=== PATIENT | male | born 1965 | race Caucasian/White ===

== ENCOUNTER 2016-12-03 13:43 | Inpatient (IN) | payer OTHER ==
[~2016-12-03] VITALS: Ht 172.7 cm; Wt 63.5 kg
[2016-12-03 15:04] LABS: HEMOGLOBIN 11.7 gm/dl (14.0-17.5); RED BLOOD COUNT 3.68 M/UL (4.20-5.50); WHITE BLOOD COUNT 8.9 K/UL (4.5-11.0)
[2016-12-03 15:24] LABS: BUN/CREATININE RATIO 14 (0-10)
--- NOTE | 2016-12-04 22:53 | NUR ---
AT 1900 DURING CHANGE OF SHIFT REPORT THE OFF GOING NURSE REPORTS PATIENT WENT OUTSIDE FOR A WALK AND FRESH AIR AND WILL RETURN LATER. PATIENT'S ROOM WAW CHECKED SEVERAL TIMES AND AT 1999 SECURITY WAS ASK TO LOOK ON THE FACILITY GROUNDS FOR THE PATIENT BECAUSE HE HAD NOT RETURNED TO HIS ROOM. AT 2200 PT WAS NOTED TO BE BACK IN HIS ROOM NO NOTED DISTRESS THIS DID CAUSE DELAY IN SHIFT ASSESSMENT, MEDS WERE GIVEN ON TIME.
[2016-12-05] MEDS ORDERED: BACTRIM DS TAB1 EACH PO (12:01)
== END 2016-12-05 11:30 | disposition home or self-care (01) | DRG 603 ==
LOC: ER1 13:43 → M/S 17:53 → ZEROF 17:53 → M/S 20:25
PROVIDERS: Emergency Medicine; ADMIT Internal Medicine
DX: L03.011 Cellulitis of right finger (principal); S61.214A Laceration without foreign body of right ring finger without damage to nail, initial encounter; D64.9 Anemia, unspecified; I25.10 Atherosclerotic heart disease of native coronary artery without angina pectoris; F17.210 Nicotine dependence, cigarettes, uncomplicated
CPT/HCPCS: 36415; 73130; 80053; 80202; 85025; 87040; 90714; 93005; 96365; 96367; 99284; J0696; J2270; J3370; J7050; J7070

== ENCOUNTER 2020-08-11 13:12 | Emergency (ER) | payer OTHER ==
[~2020-08-11 13:12] MED LIST: BACTRIM DS TAB1 EACH PO; BENADRYL 25MG C25 MG PO; CYCLOBENZAPRINE10 MG PO; CYCLOBENZAPRINE5 MG PO; GENTAMICIN 0.3% OD; IBUPROFEN600 MG PO; LOTRIMIN CREAM15 GM TP; NAPROSYN500 MG PO
[2020-08-11] MEDS ORDERED: PERCOCET 5-3251 EACH PO (14:14)
== END 2020-08-11 14:24 | disposition home or self-care (01) ==
LOC: ER1 13:12
DX: S12.9XXA Fracture of neck, unspecified, initial encounter (principal); Z71.6 Tobacco abuse counseling; F17.200 Nicotine dependence, unspecified, uncomplicated; W22.8XXA Striking against or struck by other objects, initial encounter
CPT/HCPCS: 99283

== ENCOUNTER → 2020-09-29 | Outpatient (CLI) | payer OTHER ==
[~2020-09-29] MED LIST changes: +PERCOCET 5-3251 EACH PO
== END ==
LOC: EMI 15:09
DX: M54.2 Cervicalgia (principal); M47.812 Spondylosis without myelopathy or radiculopathy, cervical region; M48.02 Spinal stenosis, cervical region; M25.78 Osteophyte, vertebrae
CPT/HCPCS: 72141